=== PATIENT | female | born 1960 | race Caucasian/White ===

== ENCOUNTER 2019-08-13 08:36 | Emergency (ER) | payer MEDICARE, MEDICAID ==
[~2019-08-13] VITALS: Ht 167.6 cm; Wt 85.0 kg
[2019-08-13] MEDS ORDERED: LORAZEPAM 2MG/ML CPJ IM STA (08:59)
[2019-08-13 09:15] LABS: BASOPHILS % 0.8 % (0.0-2.0); EOSINOPHILS % 0.7 % (0.0-5.0); HEMOGLOBIN. 14.4 g/dL (12.0-16.0); MEAN CORPUSCULAR HEMOGLOBIN 30.6 pg (28.0-32.0); MEAN CORPUSCULAR VOLUME 89.3 fL (81.0-99.0); MEAN PLATELET VOLUME 6.8 fl (7.4-10.4); MONOCYTES % 7.4 % (2.0-8.0); NEUTROPHILS % 74.1 % (40.0-76.0); PLATELET 280 x1000/uL (130-400); RED CELL DISTRIBUTION WIDTH 13.1 % (11.6-14.6)
[2019-08-13 09:21] LABS: CHLORIDE 105 mEq/L (98-107); INR 0.9; PROTHROMBIN TIME 9.7 sec (9.6-11.0)
[2019-08-13 09:25] LABS: ETHANOL BLOOD < 10 mg/dL
[2019-08-13] MEDS ORDERED: OLANZAPINE 10 MG/VIAL IM STA (10:54)
[2019-08-13] MEDS ORDERED: LORAZEPAM 2MG/ML CPJ IM ONE (11:00)
[2019-08-13] MEDS ORDERED: DIPHENHYDRAMINE 50MG/ML VIAL IM ONE (12:45)
[2019-08-13] MEDS ORDERED: MIDAZOLAM HCL 2 MG/2 ML VIAL IM ONE (13:15)
[2019-08-13] MEDS ORDERED: MIDAZOLAM HCL 2 MG/2 ML VIAL IV ONE (13:45)
[2019-08-13] MEDS ORDERED: DIPHENHYDRAMINE 50MG/ML VIAL IV ONE (13:45)
[2019-08-13] MEDS ORDERED: HALOPERIDOL LACTATE 5MG/ML VIAL IM ONE (14:15)
[2019-08-13] MEDS ORDERED: LORAZEPAM 2MG/ML CPJ IV ONE (16:00)
[2019-08-13] MEDS ORDERED: OLANZAPINE 10 MG/VIAL IM ONE (16:00)
[2019-08-13] MEDS ORDERED: CHLORPROMAZINE HCL 25MG/1ML AMP IM ONE (17:15)
[2019-08-13] MEDS ORDERED: CEFTRIAXONE 2 G PREMIX 50 ML IV ONE (17:15)
[2019-08-13] MEDS ORDERED: MORPHINE SULFATE 4 MG/ML CPJ (NOT FOR IM USE) IV ONE (18:30)
[2019-08-13 22:00] VITALS: BP 116/74
== END 2019-08-13 22:20 | disposition home or self-care (01) ==
LOC: ER 08:36
DX: F91.8 Other conduct disorders (principal); R45.1 Restlessness and agitation; F41.9 Anxiety disorder, unspecified; Z78.1 Physical restraint status; Z88.0 Allergy status to penicillin
CPT/HCPCS: 36415; 70450; 71045; 74018; 74176; 80053; 80320; 84443; 85025; 85610; 96372; 96374; 96375; 99284; J0696; J1200; J1630; J2060; J2250; J2270; J3230; J3490; G0480